=== PATIENT | male | born 1995 | race Caucasian/White ===

== ENCOUNTER → 2016-07-27 | Outpatient (CLI) | payer OTHER | LOC: EXRD 15:26 | DX: M25.561 Pain in right knee (principal); M25.461 Effusion, right knee | CPT/HCPCS: 73560 ==

== ENCOUNTER → 2016-08-10 | Outpatient (CLI) | payer OTHER | LOC: KOH-I 12:15 | DX: S83.512A Sprain of anterior cruciate ligament of left knee, initial encounter (principal); M25.461 Effusion, right knee | CPT/HCPCS: 73721 ==